=== PATIENT | male | born 1985 | race Caucasian/White ===

== ENCOUNTER 2018-07-11 15:35 | Emergency (ER) | payer OTHER ==
[~2018-07-11] VITALS: Ht 175.3 cm; Wt 106.6 kg
[~2018-07-11 15:35] MED LIST: ERYT.5TO RIGHTEYE; HYDACE5 PO; RXOXYACE PO; RXPROM25 PO
== END 2018-07-11 16:13 | disposition home or self-care (01) ==
LOC: ER 15:35
DX: H01.001 Unspecified blepharitis right upper eyelid (principal); Z88.5 Allergy status to narcotic agent; F17.200 Nicotine dependence, unspecified, uncomplicated
CPT/HCPCS: 99283

== ENCOUNTER 2018-08-21 05:12 | Emergency (ER) | payer OTHER ==
[~2018-08-21] VITALS: Ht 175.3 cm; Wt 104.3 kg
[2018-08-21 06:19] LABS: BASOPHILS ABSOLUTE AUTO 0.11 K/mm3 (0.00-0.23); BASOPHILS PERCENT AUTO 1 % (0-2); EOSINOPHILS ABSOLUTE AUTO 0.51 K/mm3 (0.00-0.68); EOSINOPHILS PERCENT AUTO 6 % (0-6); Hemoglobin 16.6 g/dL (13.5-17.5); IMMATURE GRAN ABSOLUTE AUTO 0.02 K/mm3 (0.00-0.10); IMMATURE GRAN PERCENT AUTO 0 % (0-1); LYMPHOCYTES ABSOLUTE AUTO 3.05 K/mm3 (0.84-5.20); LYMPHOCYTES PERCENT AUTO 36 % (21-46); MONOCYTES ABSOLUTE AUTO 0.81 K/mm3 (0.16-1.47); MONOCYTES PERCENT AUTO 10 % (4-13); Mean Corpuscular HGB 30.2 pg (26.0-34.0); Mean Corpuscular HGB Conc 33.9 g/dL (31.5-36.5); Mean Corpuscular Volume 89 fL (80-100); Mean Platelet Volume 9.4 fL (9.1-12.4); NEUTROPHILS ABSOLUTE AUTO 3.98 K/mm3 (1.96-9.15); NEUTROPHILS PERCENT AUTO 47 % (41-73); Platelet Count 249 K/mm3 (150-400); RDW Coefficient Variation 12.3 % (11.7-14.2); RDW Standard Deviation 40.4 fL (35.1-46.3); White Blood Cell Count 8.48 K/mm3 (4.00-11.30)
[2018-08-21 06:37] LABS: Alanine Aminotransfer (ALT/SGP 57 U/L (12-78); Albumin, Blood 3.6 g/dL (3.4-5.0); Alk Phos 52 U/L (50-136); Anion Gap 8 mmol/L (6-16); Aspartate Aminotrans (AST/SGOT 25 U/L (12-37); Bilirubin, Total 0.6 mg/dL (0.1-1.0); Blood Urea Nitrogen 15 mg/dL (8-24); Bun/Creatinine Ratio 15.4 (12.0-20.0); CO2, Blood 28 mmol/L (21-32); Calcium, Blood 8.9 mg/dL (8.5-10.1); Chloride, Blood 104 mmol/L (98-108); Creatinine, Blood 0.97 mg/dL (0.60-1.20); Globulin, Blood 3.5 g/dL (2.2-4.0); Glomerular Filtration Rate >60 (60-); Glucose, Blood 162 mg/dL (70-99); Potassium, Blood 3.9 mmol/L (3.5-5.5); Sodium, Blood 140 mmol/L (136-145); Total Protein, Blood 7.1 g/dL (6.4-8.2)
[2018-08-21 06:50] LABS: Source, Urine Clean Catch
[2018-08-21 06:52] LABS: Appearance, Urine Clear (Clear); Bilirubin, Urine Neg (Neg); Blood, Urine Neg (Neg); Color, Urine Amber (P-Yellow); Glucose Qualitative, Urine Neg (Neg); Ketones, Urine Neg (Neg); Leukocyte Esterase, Urine Neg (Neg); Nitrite, Urine Neg (Neg); Protein, Urine Neg (Neg); Specific Gravity, Urine 1.025 (1.003-1.022); Urobilinogen, Urine NORM (Normal)
[2018-08-21] MEDS ORDERED: SUCR1 PO (08:26)
[2018-08-21] MEDS ORDERED: OMEPRAZOLE20 MG PO (08:26)
== END 2018-08-21 08:35 | disposition home or self-care (01) ==
LOC: ER 05:12
PROVIDERS: Emergency Medicine
DX: K29.70 Gastritis, unspecified, without bleeding (principal); Z88.8 Allergy status to other drugs, medicaments and biological substances; Z88.5 Allergy status to narcotic agent; Z87.891 Personal history of nicotine dependence
CPT/HCPCS: 36415; 74176; 80053; 81003; 83690; 85025; 99284-25

== ENCOUNTER 2018-12-01 00:38 | Emergency (ER) | payer OTHER ==
[~2018-12-01] VITALS: Ht 175.3 cm; Wt 108.0 kg
[~2018-12-01 00:38] MED LIST changes: +OMEPRAZOLE20 MG PO; +SUCR1 PO
== END 2018-12-01 01:33 | disposition home or self-care (01) ==
LOC: ER 00:38
DX: R68.84 Jaw pain (principal); F17.210 Nicotine dependence, cigarettes, uncomplicated; Z87.442 Personal history of urinary calculi; Z88.8 Allergy status to other drugs, medicaments and biological substances; Z88.5 Allergy status to narcotic agent
CPT/HCPCS: 99283

== ENCOUNTER 2019-07-17 11:39 | Emergency (ER) | payer OTHER ==
[~2019-07-17] VITALS: Ht 175.3 cm; Wt 117.9 kg
[2019-07-17] MEDS ORDERED: Motion Sickness25 M1 PO (12:21)
[2019-07-17 12:27] LABS: BASOPHILS ABSOLUTE AUTO 0.09 K/mm3 (0.00-0.23); BASOPHILS PERCENT AUTO 1 % (0-2); EOSINOPHILS ABSOLUTE AUTO 0.39 K/mm3 (0.00-0.68); EOSINOPHILS PERCENT AUTO 5 % (0-6); Hematocrit 50.8 % (37.0-53.0); Hemoglobin 17.6 g/dL (13.5-17.5); IMMATURE GRAN ABSOLUTE AUTO 0.05 K/mm3 (0.00-0.10); IMMATURE GRAN PERCENT AUTO 1 % (0-1); LYMPHOCYTES ABSOLUTE AUTO 2.89 K/mm3 (0.84-5.20); LYMPHOCYTES PERCENT AUTO 34 % (21-46); MONOCYTES ABSOLUTE AUTO 0.71 K/mm3 (0.16-1.47); MONOCYTES PERCENT AUTO 8 % (4-13); Mean Corpuscular HGB 30.4 pg (26.0-34.0); Mean Corpuscular HGB Conc 34.6 g/dL (31.5-36.5); Mean Corpuscular Volume 88 fL (80-100); Mean Platelet Volume 9.4 fL (9.1-12.4); NEUTROPHILS ABSOLUTE AUTO 4.42 K/mm3 (1.96-9.15); NEUTROPHILS PERCENT AUTO 52 % (41-73); Platelet Count 311 K/mm3 (150-400); RDW Coefficient Variation 12.3 % (11.7-14.2); RDW Standard Deviation 39.7 fL (35.1-46.3); Red Blood Cell Count 5.79 M/mm3 (4.30-5.90); White Blood Cell Count 8.55 K/mm3 (4.00-11.30)
[2019-07-17 12:47] LABS: Anion Gap 8 mmol/L (6-16); Blood Urea Nitrogen 13 mg/dL (8-24); Bun/Creatinine Ratio 13.9 (12.0-20.0); CO2, Blood 26 mmol/L (21-32); Calcium, Blood 9.2 mg/dL (8.5-10.1); Chloride, Blood 104 mmol/L (98-108); Creatinine, Blood 0.94 mg/dL (0.60-1.20); Glomerular Filtration Rate >60 (60-); Glucose, Blood 170 mg/dL (70-99); Sodium, Blood 138 mmol/L (136-145)
[2019-07-17] MEDS ORDERED: Hydrochloroth12.5 MG PO (12:57)
== END 2019-07-17 13:05 | disposition home or self-care (01) ==
LOC: ER 11:39
PROVIDERS: Emergency Medicine
DX: I10 Essential (primary) hypertension (principal); F17.200 Nicotine dependence, unspecified, uncomplicated; Z88.5 Allergy status to narcotic agent; Z88.8 Allergy status to other drugs, medicaments and biological substances
CPT/HCPCS: 36415; 80048; 85025; 93005; 93010; 99284-25

== ENCOUNTER 2019-10-17 01:26 | Emergency (ER) | payer OTHER ==
[~2019-10-17] VITALS: Ht 175.3 cm; Wt 117.9 kg
[~2019-10-17 01:26] MED LIST changes: +Hydrochloroth12.5 MG PO; +Motion Sickness25 M1 PO
[2019-10-17 01:39] LABS: Source, Urine Clean Catch
[2019-10-17 01:47] LABS: Bilirubin, Urine Neg (Neg); Blood, Urine Neg (Neg); Glucose Qualitative, Urine Neg (Neg); Ketones, Urine Neg (Neg); Leukocyte Esterase, Urine Neg (Neg); Nitrite, Urine Neg (Neg); Protein, Urine Neg (Neg); Urobilinogen, Urine NORM (Normal)
[2019-10-17 01:49] LABS: Appearance, Urine Clear (Clear); Color, Urine Amber (P-Yellow)
== END 2019-10-17 02:28 | disposition home or self-care (01) ==
LOC: ER 01:26
PROVIDERS: Emergency Medicine
DX: G89.29 Other chronic pain (principal); M54.5 Low back pain; Z88.5 Allergy status to narcotic agent; Z88.8 Allergy status to other drugs, medicaments and biological substances; F17.290 Nicotine dependence, other tobacco product, uncomplicated
CPT/HCPCS: 81003; 96372; 99283-25; J1885